=== PATIENT | male | born 1990 | race Caucasian/White ===

== ENCOUNTER 2024-05-31 09:16 | Emergency (ER) | payer OTHER, SELFPAY ==
[2024-05-31] VITALS (8 sets, daily range): BP systolic 125–159; BP diastolic 64–93; PULSE 68–83; RESP 18; TEMP 37.1; O2SAT 95–99; BMI 32.5
--- NOTE | 2024-05-31 09:42 | PC.NURSE ---
This RN placed stop order for EKG as this patient doesn't meet order set criteria of age over 50 years old.
--- NOTE | 2024-05-31 09:47 | ED_ITS ---
HPI - Back Pain/Injury General Chief Complaint: Back Pain/Injury Stated Complaint: poss kidney stones or infection Time Seen by Provider: 05/31/24 09:38 Source: patient History of Present Illness HPI Narrative: Patient 33-year-old male with no past medical history presenting today with left flank pain. It started yesterday. He was actually seen evaluated walk-in clinic presumed to be a kidney stone started on Toradol and Flomax. He continues to have pain radiating around to his abdomen and groin. Feeling nauseous at times appearing having sweats and chills at times as well. He does report pink tinged urine. No other symptoms. He has no prior history of kidney stones. Currently here for work from [employer] Allergies Allergy/AdvReac Type Severity Reaction Status Date / Time No Known Drug Allergies Allergy Verified 05/31/24 09:34 Patient History Social History Smoking Status: Never smoker Smoking Status: Never smoker Substance Use Type: does not use Exam Initial Vital Signs Initial Vital Signs: Vital Signs Pulse Rate 72 05/31/24 09:21 Blood Pressure 157/93 H 05/31/24 09:21 Pulse Oximetry 96 05/31/24 09:21 GENERAL: Alert pleasant 33-year-old male appears uncomfortable and in no acute distress. HEENT: Head atraumatic,EOMI, pupils reactive, face symmetric, moist mucous membranes CARDIOVASCULAR: Regular rate and rhythm without murmurs, rubs or gallops. RESPIRATORY: Breath sounds equal bilaterally, no wheezes rales or rhonchi. ABDOMEN: Soft, nontender. Normoactive bowel sounds all 4 quadrants. No guarding or rebound. : Mild left CVA tenderness EXTREMITIES: Normal range of motion, no clubbing or edema. Neurovascularly intact NEUROLOGICAL: Alert and oriented x4.Normal gait and speech. SKIN: Warm, dry, no laceration, no petechiae, no rashes or lesions. Course Orders Ordered: ED Orders 05/31/24 09:38 Complete Blood Count AUTO DIFF Stat Comprehensive Metabolic Panel Stat Lipase Stat 05/31/24 11:00 CT kidney ureter bladder (KUB) Stat Discontinued Medications Ketorolac Tromethamine (Ketorolac 30 Mg/Ml Vial) 15 mg IV NOW ONE Stop: 05/31/24 10:01 Last Admin: 05/31/24 10:10 Dose: 15 mg Documented By: RB Ondansetron HCl (Ondansetron 4 Mg/2 Ml Inj) 4 mg IV NOW PRN PRN Reason: Nausea And Vomiting Last Admin: 05/31/24 10:11 Dose: 4 mg Documented By: RB Ondansetron HCl (Ondansetron 4 Mg Odt) 4 mg SL NOW PRN PRN Reason: Nausea And Vomiting Vital Signs Vital signs: Vital Signs - 8 hr 05/31/24 09:21 05/31/24 09:21 05/31/24 09:26 Temperature 98.8 F Pulse Rate 72 73 Respiratory Rate 18 Blood Pressure 157/93 H 157/93 H Pulse Oximetry 96 98 Oxygen Delivery Method Room Air 05/31/24 09:30 05/31/24 09:30 05/31/24 09:38 Temperature Pulse Rate 68 77 Respiratory Rate Blood Pressure 147/87 H Pulse Oximetry 97 98 Oxygen Delivery Method 05/31/24 09:38 05/31/24 10:00 05/31/24 10:00 Temperature Pulse Rate 80 Respiratory Rate Blood Pressure 138/92 H 141/89 H Pulse Oximetry 99 Oxygen Delivery Method 05/31/24 10:22 05/31/24 10:22 05/31/24 10:30 Temperature Pulse Rate 83 71 Respiratory Rate Blood Pressure 159/67 H Pulse Oximetry 96 95 Oxygen Delivery Method 05/31/24 10:30 05/31/24 11:00 05/31/24 11:00 Temperature Pulse Rate 72 Respiratory Rate Blood Pressure 133/64 125/74 Pulse Oximetry 96 Oxygen Delivery Method MDM - Back Pain/Injury Lab Data 05/31/24 09:38 05/31/24 09:38 Labs: Lab Results 05/31/24 Range/Units 09:38 WBC 12.6 H (4.5-11.0) X10^3/uL RBC 4.80 (4.5-5.9) X10^6/uL Hgb 13.6 (13.5-17.5) g/dL Hct 41.0 (41-53) % MCV 85.5 (80-100) fL MCH 28.3 (26-34) PG MCHC 33.1 (30-36) % RDW 13.4 (11.6-14.8) % Plt Count 297 (150-400) X10^3/uL Neut % (Auto) 87.2 H (50-75) % Lymph % (Auto) 8.3 L (25-40) % [place] % (Auto) 3.9 (3-14) % Eos % (Auto) 0.1 L (2-4) % Baso % (Auto) 0.5 (0-2) % Neut # (Auto) 21198 H (5412-8864) /uL Lymph # (Auto) 1100 (4426-5272) /uL [place] # (Auto) 500 (0-900) /uL Eos # (Auto) 0 (0-450) /uL Baso # (Auto) 100 (0-100) /uL Sodium 136 L (137-145) mmol/L Potassium 4.1 (3.4-5.1) mmol/L Chloride 105 (98-107) mmol/L Carbon Dioxide 24 (22-32) mmol/L BUN 12 (9-20) mg/dL Creatinine 1.15 (0.66-1.25) mg/dL Estimated GFR > 60 (>60) mL/min BUN/Creatinine Ratio 10.4 (6-22) Glucose 126 H (70-100) mg/dL Calcium 8.7 (8.4-10.2) mg/dL Total Bilirubin 0.5 (0.2-1.3) mg/dL AST 30 (17-59) IU/L ALT 25 (<50) IU/L Alkaline Phosphatase 41 (38-126) U/L Total Protein 7.3 (6.3-8.2) g/dL Albumin 4.4 (3.5-5.0) g/dL Globulin 2.9 (1.7-4.1) g/dL Albumin/Globulin Ratio 1.5 (1.0-2.8) Lipase 31 (23-300) U/L Urine Dip Bedside Urine Glucose Negative Bedside Urine Bilirubin - Negative Bedside Urine Ketone - Negative Urine Specific [place] 1.015 Bedside Urine Occult Blood - Negative Bedside Urine pH 6.5 Bedside Urine Protein - Negative Bedside Urine Urobilinogen - Negative Bedside Urine Nitrite - Negative Bedside Urine Leukocytes - Negative Esterase Imaging Data CT scan - abdomen/pelvis: Radiologist's Impression: PROCEDURE: CT KIDNEY URETER BLADDER (KUB) INDICATIONS: left flank pain TECHNIQUE: Axial sections were acquired from the lung bases to the pubic symphysis. Coronal and sagittal reformats were performed. For radiation dose reduction, the following was used: automated exposure control, adjustment of mA and/or kV according to patient size. COMPARISON: None. FINDINGS: Image quality: Diagnostic. Lower Chest: No significant findings. URINARY: Right Kidney: No stones or hydronephrosis. Right Ureter: No hydroureter. Left Kidney: Mild left-sided hydronephrosis is seen. 2 millimeter nonobstructing stone is seen in lower pole left kidney. Left Ureter: There is left-sided hydroureter extending to the level of left UVJ. No obstructing ureteral stone is identified. Bladder: Normal wall thickness. 2 millimeter stone is seen in left side of urinary bladder dependent portion series 2, image 89 suggestive of a passed left-sided renal stone. ABDOMEN: Liver: No contour-deforming solid mass. Gallbladder: No radiopaque gallstones or wall thickening. Biliary ducts: No biliary dilation. Pancreas: No ductal dilation. Spleen: Size is within normal limits. Adrenal Glands: No adrenal nodules. Stomach and Bowel: There is no bowel obstruction. No abnormal bowel wall thickening or mesenteric fat stranding. No abscess collection. Peritoneum: No abnormal intraperitoneal fluid. No free air. Ventral Wall: No hernia. Abdominal Nodes: No enlarged retroperitoneal or mesenteric lymph nodes. Vessels: Aorta and inferior vena cava are normal in size. PELVIS: Pelvic Organs: Unremarkable. Pelvic Nodes: Unremarkable. Miscellaneous: No inguinal hernias are seen. Bones: No aggressive appearing bony lesions. IMPRESSION: 1. Finding is suggestive of a passed 2 millimeter left renal stone with mild left-sided hydronephrosis and hydroureter. No right-sided renal stones or hydronephrosis. Normal appearing urinary bladder. 2. No bowel obstruction or abnormal bowel wall thickening. No free fluid or free air. Dictated by: Chau Cassidy M.D. on 05/31/2024 at 10:30 MDM Narrative Medical decision making narrative: Patient healthy 33-year-old male presents today with left-sided flank pain ongoing since yesterday. Pain seems to come and go he does have episodes of nausea. There is concern for kidney stone he has no history of nephrolithiasis. He is mildly tender on exam otherwise normal. Blood work does show mild leukocytosis of 12.6 creatinine 1.1 urinalysis negative for leukocytes nitrates and hematuria Imaging reviewed does show a 2 mm stone in the bladder suggestive of a recently passed kidney stone Patient urinated in the restroom after the CT I suspect he pass the stone. He is overall feeling a bit better. No need for antibiotics at this time. Discussion with him that he feels may still be sore can still take ketorolac but no longer needs tamsulosin. Discharge Plan Departure Patient Disposition: Home Clinical Impression: Kidney stone on left side Instructions: DI for Kidney Stones Activity Restrictions/Additional Instructions: *You have been diagnosed with kidney stone *What to do: It does look like you just past your kidney stone. You should start feeling better. But expect to still be sore at times *Continue to take medications as directed May continue to take ketorolac as previously prescribed if needed You can stop tamsulosin *Follow up with your primary care provider in 2-3 days or call [phone] *Return to ER if you should have increasing pain nausea vomiting [or] any new, worsening or concerning symptoms Stand Alone Forms: Patient Portal/API
[2024-05-31 09:50] LABS: Add Manual Diff / Slide Review NO; Basophils Absolute Auto 100 /uL (0-100); Basophils Percent Auto 0.5 % (0-2); Eosinophils Absolute Auto 0 /uL (0-450); Eosinophils Percent Auto 0.1 % (2-4); Hemoglobin 13.6 g/dL (13.5-17.5); Lymphocytes Absolute Auto 1100 /uL (1100-4500); Lymphocytes Percent Auto 8.3 % (25-40); Mean Corpuscular HGB Conc 33.1 % (30-36); Mean Corpuscular Hemoglobin 28.3 PG (26-34); Mean Corpuscular Volume 85.5 fL (80-100); Monocytes Absolute Auto 500 /uL (0-900); Monocytes Percent Auto 3.9 % (3-14); Neutrophils Absolute Auto 11000 /uL (1500-7000); Neutrophils Percent Auto 87.2 % (50-75); Platelet Count 297 X10^3/uL (150-400); Red Cell Distribution Width 13.4 % (11.6-14.8); White Blood Cell Count 12.6 X10^3/uL (4.5-11.0)
[2024-05-31 10:10] LABS: Alanine Aminotransferase 25 IU/L (<50); Albumin 4.4 g/dL (3.5-5.0); Albumin Globulin Ratio 1.5 (1.0-2.8); Alkaline Phosphatase 41 U/L (38-126); Aspartate Aminotransferase 30 IU/L (17-59); BUN Creatinine Ratio 10.4 (6-22); Bilirubin Total 0.5 mg/dL (0.2-1.3); Blood Urea Nitrogen 12 mg/dL (9-20); Calcium 8.7 mg/dL (8.4-10.2); Carbon Dioxide 24 mmol/L (22-32); Chloride 105 mmol/L (98-107); Estimated Glomerular Filt Rate > 60 mL/min (>60); Globulin 2.9 g/dL (1.7-4.1); Glucose 126 mg/dL (70-100); HEMOLYSIS < 15 (0-50); Lipase 31 U/L (23-300); Potassium 4.1 mmol/L (3.4-5.1); Sodium 136 mmol/L (137-145); Total Protein 7.3 g/dL (6.3-8.2)
[2024-05-31] MEDS: KETOROLAC 30 MG/ML VIAL 15 MG IV (10:10)
[2024-05-31] MEDS: ONDANSETRON 4 MG/2 ML INJ IV (10:11)
--- NOTE | 2024-05-31 11:00 | DI.CT.S_ITS ---
PROCEDURE: CT KIDNEY URETER BLADDER (KUB) INDICATIONS: left flank pain TECHNIQUE: Axial sections were acquired from the lung bases to the pubic symphysis. Coronal and sagittal reformats were performed. For radiation dose reduction, the following was used: automated exposure control, adjustment of mA and/or kV according to patient size. COMPARISON: None. FINDINGS: Image quality: Diagnostic. Lower Chest: No significant findings. URINARY: Right Kidney: No stones or hydronephrosis. Right Ureter: No hydroureter. Left Kidney: Mild left-sided hydronephrosis is seen. 2 millimeter nonobstructing stone is seen in lower pole left kidney. Left Ureter: There is left-sided hydroureter extending to the level of left UVJ. No obstructing ureteral stone is identified. Bladder: Normal wall thickness. 2 millimeter stone is seen in left side of urinary bladder dependent portion series 2, image 89 suggestive of a passed left-sided renal stone. ABDOMEN: Liver: No contour-deforming solid mass. Gallbladder: No radiopaque gallstones or wall thickening. Biliary ducts: No biliary dilation. Pancreas: No ductal dilation. Spleen: Size is within normal limits. Adrenal Glands: No adrenal nodules. Stomach and Bowel: There is no bowel obstruction. No abnormal bowel wall thickening or mesenteric fat stranding. No abscess collection. Peritoneum: No abnormal intraperitoneal fluid. No free air. Ventral Wall: No hernia. Abdominal Nodes: No enlarged retroperitoneal or mesenteric lymph nodes. Vessels: Aorta and inferior vena cava are normal in size. PELVIS: Pelvic Organs: Unremarkable. Pelvic Nodes: Unremarkable. Miscellaneous: No inguinal hernias are seen. Bones: No aggressive appearing bony lesions. IMPRESSION: 1. Finding is suggestive of a passed 2 millimeter left renal stone with mild left-sided hydronephrosis and hydroureter. No right-sided renal stones or hydronephrosis. Normal appearing urinary bladder. 2. No bowel obstruction or abnormal bowel wall thickening. No free fluid or free air. Dictated by: Chau Cassidy M.D. on 05/31/2024 at 10:30 Approved by: Chau Cassidy M.D. on 05/31/2024 at 10:32
== END 2024-05-31 11:29 | disposition home or self-care (01) ==
PROVIDERS: Emergency Provider Emergency Medicine
DX: N20.0 Calculus of kidney (principal)
CPT/HCPCS: 36415; 74176; 80053; 81003; 83690; 85025; 96374; 96375; 99284; J1885; J2405